=== PATIENT | male | born 1985 | race African-American/Black ===

== ENCOUNTER 2017-04-22 19:24 | Emergency (ER) | payer OTHER ==
[~2017-04-22] VITALS: Ht 190.5 cm; Wt 136.1 kg
[~2017-04-22 19:24] MED LIST: CUTIVATE0.05% TOP; KETOCONAZOLE 2%30 GM TOP; MEDROL DOSEPAK1 PAC PO
--- NOTE | 2017-04-22 21:00 | ED INFLUENZA/URI COMPLAINT ---
History of Present Illness General Chief Complaint: Upper Respiratory Sx/Fever Stated Complaint: FEVER, SORE THROAT, CONGESTION, X 1 DAY Source: patient Exam Limitations: no limitations Vital Signs & Intake/Output Vital Signs & Intake/Output Vital Signs Date Time Temp Pulse Resp B/P B/P Pulse O2 O2 Flow FiO2 Mean Ox Delivery Rate 04/22 2120 98.2 109 29 129/86 97 Room Air 04/22 2000 98.4 112 18 135/87 97 Room Air ED Intake and Output 04/23 0000 04/22 1200 Intake Total Output Total Balance Patient 300 lb Weight Weight Estimated Measurement Method Allergies Coded Allergies: NO KNOWN ALLERGIES (05/09/15) Reconcile Medications Amoxicillin 500 MG TABLET 1 TAB PO BID PHARYNGITIS Fluticasone Propionate (Cutivate) 0.05% CRE 1 TANISHA TOP BID ECZEMA apply to affected area(s) Ketoconazole (Ketoconazole 2% 30GM TUBE) 30 GM CRM 1 TANISHA TOP BID FUNGAL INFECTION apply to affected area(s) Methylprednisolone. (Medrol) 1 PAC PAC 1 PAC PO DAILY INFLAMMATION USE DIRECTED Methylprednisolone. (Medrol) 4 MG TAB.DS.PK 1 DP PO AD INFLAMMATION 6 on day 1 then reduce by one tablet daily until gone Triage Note: RECEIVED 31 YO MALE C/O UPPER RESP INFECTION SYMPTOMS; CONGESTION, NON PROD COUGH, SORE THROAT, HOT FLASHES X ONE DAY. NOT GETTING BETTER. Triage Nurses Notes Reviewed? yes Onset: Gradual Duration: constant Timing: recent history Severity: moderate Severity Numbers: 5 HPI: Patient is a 31 year old male who presents margin with a 48 hour history of gradual onset of sore throat not feeling well and fevers. Patient has tried [id number] medications with no relief of symptoms. Denies any similar sick contacts. Patient can tolerate by mouth however increases patient's symptoms of pain. (LARRY MOSES) Past History Travel History Traveled to [place] past 21 day No Medical History Any Pertinent Medical History? see below for history Neurological: NONE EENT: NONE Cardiovascular: NONE Respiratory: asthma Gastrointestinal: NONE Hepatic: NONE Renal: NONE Musculoskeletal: NONE Psychiatric: anxiety, PTSD Endocrine: NONE Blood Disorders: NONE Cancer(s): NONE [employer]/Reproductive: NONE Surgical History Surgical History: appendectomy Psychosocial History What is your primary language Tuvaluan Tobacco Use: Never used Family History Hx Contributory? No (LARRY MOSES) Review of Systems Review of Systems Constitutional: Reports: no symptoms. EENTM: Reports: throat pain. Respiratory: Reports: no symptoms. Cardiovascular: Reports: no symptoms. GI: Reports: no symptoms. Genitourinary: Reports: no symptoms. Musculoskeletal: Reports: no symptoms. Skin: Reports: no symptoms. Neurological/Psychological: Reports: no symptoms. Hematologic/Endocrine: Reports: no symptoms. Immunologic/Allergic: Reports: no symptoms. All Other Systems: Reviewed and Negative (LARRY MOSES) Physical Exam Physical Exam General Appearance: no apparent distress, alert, comfortable Ears, Nose, Throat: moist mucous membrane, hearing grossly normal, Tympanic normal Comments: Well-developed well-nourished person in no acute distress HEENT: extraocular motion intact, no nystagmus. Pupils equally round and reactive to light and accommodation. Nose is atraumatic. External auditory canal and Tympanic membranes clear. Pharynx noted erythema no exudates no swelling Neck: Supple, bilateral anterior lymphadenopathy, normal range of motion without pain or tenderness Back: Nontender, no CVA tenderness. Cardiovascular: Regular rate and rhythms no murmurs rubs or gallops, normal JVP Respiratory: Chest nontender. No respiratory distress.breath sounds clear to auscultation bilaterally Abdomen: Soft, nontender nondistended, no appreciable organomegaly. Normal bowel sounds. No ascites Extremity: No edema, no calf tenderness to palpation, normal and equal pulses. Neuro: Alert oriented x3, motor sensory normal, Skin: No appreciable rash on exposed skin, skin is warm and dry. Psych: Mood and affect is normal, memory and judgment is normal. Core Measures Severe Sepsis Present: No Septic Shock Present: No (LARRY MOSES) Progress Differential Diagnosis: influenza, meningitis, neutropenia, otitis, pneumonia, pharyngitis, sinusitis Plan of Care: Orders Procedure Date/time Status THROAT CULTURE W/QUICK STREP 04/22 1933 Complete Patient has positive strep patient will be treated accordingly (LARRY MOSES) Initial ED EKG: none (LARRY MOSES) Departure Departure Disposition: HOME OR SELF CARE Condition: Stable Clinical Impression Primary Impression: Streptococcal pharyngitis Referrals: ROYCE CLAUDIO MD (PCP/Family) Additional Instructions: As discussed begin the prescription of amoxicillin, Medrol Dosepak and Magic mouthwash as directed for your symptoms. The prescription is waiting at [facility] pharmacy. Begin [id number] ibuprofen for pain and inflammation. If symptoms worsen return to emergency room. If no better in 2 days follow-up with primary care doctor Departure Forms: Customer Survey General Discharge Information Prescriptions: Current Visit Scripts Amoxicillin 1 TAB PO BID #20 TAB Methylprednisolone. (Medrol) 1 DP PO AD #1 DP 6 on day 1 then reduce by one tablet daily until gone (LARRY MOSES) PA/PHOTOGRAPHS CURATOR Co-Sign Statement Statement: ED Attending supervision documentation- [] I saw and evaluated the patient. I have also reviewed all the pertinent lab results and diagnostic results. I agree with the findings and the plan of care as documented in the PA's/PHOTOGRAPHS CURATOR's documentation. [X] I have reviewed the ED Record and agree with the PA's/PHOTOGRAPHS CURATOR's documentation. [] Additions or exceptions (if any) to the PAs/PHOTOGRAPHS CURATOR's note and plan are summarized below: [] (DREW TAO,[place])
[2017-04-22] MEDS ORDERED: AMOXICILLIN500 M3 PO (21:07)
[2017-04-22] MEDS ORDERED: MEDROL4 M2 PO (21:07)
[2017-04-22 21:20] VITALS: BP 129/86
== END 2017-04-22 21:20 ==
LOC: ERH 19:24
DX: J02.0 Streptococcal pharyngitis (principal)